=== PATIENT | female | born 1985 | race Caucasian/White ===

== ENCOUNTER → 2018-07-26 | Outpatient (CLI) | payer OTHER | LOC: FIMAGING 08:05 | PROVIDERS: ATTEND Obstetrics & Gynecology | DX: Z34.02 Encounter for supervision of normal first pregnancy, second trimester (principal); Z3A.20 20 weeks gestation of pregnancy ==

== ENCOUNTER → 2018-08-23 | Outpatient (CLI) | payer OTHER | LOC: FIMAGING 12:42 | PROVIDERS: ATTEND Obstetrics & Gynecology | DX: Z34.82 Encounter for supervision of other normal pregnancy, second trimester (principal); Z3A.24 24 weeks gestation of pregnancy ==

== ENCOUNTER 2018-12-09 21:04 | Inpatient (IN) | payer OTHER ==
[2018-12-09] MEDS ORDERED: fentaNYL 2MCG/ML/BUP 0.1% RTU 100 ML BAG EP ONE (22:10)
[2018-12-09] MEDS ORDERED: PHENYLEPHRINE HCL 100 MCG/ML SYR ONE (22:11)
[2018-12-09] MEDS ORDERED: MISOPROSTOL 200 MCG TAB PR PRN (22:23)
[2018-12-09] MEDS ORDERED: OXYTOCIN/RINGERS LACTATE 1,000 ML IV PRN (22:23)
[2018-12-09] MEDS ORDERED: LR 1,000 ML IV PRN (22:23)
[2018-12-09] MEDS ORDERED: EPSOM SALT 454 GM TP PRN (22:23)
[2018-12-09] MEDS ORDERED: IBUPROFEN 600 MG TAB PO PRN (22:23)
[2018-12-09] MEDS ORDERED: OLIVE OIL 118 ML BTL MISC PRN (22:23)
[2018-12-09] MEDS ORDERED: LIDOCAINE 1% 300 MG/30 ML SDV SC PRN (22:23)
[2018-12-09] MEDS ORDERED: LIDOCAINE 1% 300 MG/30 ML SDV ONE (22:39)
[2018-12-09] MEDS ORDERED: OLIVE OIL 118 ML BTL MISC ONE (22:39)
[2018-12-09 22:40] LABS: PLATELET COUNT 221 10^3/uL (150-400)
[2018-12-09] MEDS ORDERED: OXYTOCIN 10 UNIT/ML VIAL ONE (22:40)
[2018-12-09] MEDS ORDERED: AMMONIA AROMATIC 1 EACH AMP IH ONE (22:40)
[2018-12-09] MEDS ORDERED: MISOPROSTOL 200 MCG TAB ONE (22:40)
[2018-12-09] MEDS ORDERED: TERBUTALINE SULFATE 1 MG/ML VIAL ONE (22:40)
[2018-12-09] MEDS ORDERED: PHENYLEPHRINE HCL 100 MCG/ML SYR IVP PRN (23:03)
--- NOTE | 2018-12-09 23:03 | PREANESOB ---
Obstetric Pre-Anesthesia Info - General Info : 2 Para: 0 RAFFAELE: 12/12/18 Gestational Age: 39 week(s) and 4 day(s) - Info Status: Full Term, Fraga Monitors: External FHR Pattern: Reassuring - Labor Status Cervical Dilation per last OB SVE: 5 Amniotic Fluid Color: Clear PIH: No Magnesium Sulfate in Use: No Indications for Labor Analgesia: Pain Control Labor Epidural: Proposed Anesthesia Allergies/Adverse Reactions: Allergy/AdvReac Type Severity Reaction Status Date / Time No Known Allergies Allergy Unverified 02/15/15 13:10 Home Medications: Medication Instructions Recorded Docusate Sodium [Colace 100 MG (*)] 100 mg PO BID PRN #0 cap 02/18/15 Ibuprofen [Motrin (*)] 600 mg PO Q6 PRN #0 tab 02/18/15 Visit Medications: Generic Name Dose Route Start Last Admin Trade Name Freq PRN Reason Stop Dose Admin Lactated Ringer's 1,000 mls @ 0 mls/hr 12/09/18 22:23 Lr IV 12/10/18 22:22 PRN PRN SEE PROTOCOL CONDITIONS Protocol Per Protocol Oxytocin/Lactated Ringer's 1,000 mls @ 125 mls/hr 12/09/18 22:23 Pitocin 20 Units/Lr (Premix) IV PRN PRN Post bleeding Ibuprofen 600 mg 12/09/18 22:23 Motrin PO ONCE PRN post , pain Lidocaine HCl 300 mg 12/09/18 22:23 Lidocaine Hcl 1% SC 06/07/19 22:22 ONCE PRN episiotomy Magnesium Sulfate 454 gm 12/09/18 22:23 Epsom Salt TP 06/07/19 22:22 Q1H PRN perineal discomfort Misoprostol 800 - 1,000 mcg 12/09/18 22:23 Cytotec [place] ONCE PRN Vaginal Atony/Bleeding Cambria Oil 118 ml 12/09/18 22:23 Sweet Oil MISC 06/07/19 22:22 ONCE PRN perineal massage Discontinued Medications Generic Name Dose Route Start Last Admin Trade Name Freq PRN Reason Stop Dose Admin Ammonia (Aromatic Spirit) Confirm 12/09/18 22:40 Ammonia Aromatic Administered 12/09/18 22:41 Dose 1 each IH .STK-MED ONE Fentanyl/Bupivacaine HCl Confirm 12/09/18 22:10 Fentanyl/Bupivacaine/Ns 2 Mcg/Ml 0.1% (Premix Administered 12/09/18 22:11 Dose 100 ml EP .STK-MED ONE Lidocaine HCl Confirm 12/09/18 22:39 Lidocaine Hcl 1% Administered 12/09/18 22:40 Dose 300 mg .ROUTE .STK-MED ONE Misoprostol Confirm 12/09/18 22:40 Cytotec Administered 12/09/18 22:41 Dose 1,000 mcg .ROUTE .STK-MED ONE Cambria Oil Confirm 12/09/18 22:39 Sweet Oil Administered 12/09/18 22:40 Dose 118 ml MISC .STK-MED ONE Oxytocin Confirm 12/09/18 22:40 Pitocin Administered 12/09/18 22:41 Dose 40 unit .ROUTE .STK-MED ONE Phenylephrine HCl Confirm 12/09/18 22:11 Neosynephrine Administered 12/09/18 22:12 Dose 1,000 mcg .ROUTE .STK-MED ONE Terbutaline Sulfate Confirm 12/09/18 22:40 Brethine Administered 12/09/18 22:41 Dose 1 mg .ROUTE .STK-MED ONE - Vital Signs Height/Weight (Nursing): Height 175.26 cm Weight 78.471 kg - Focused Exam Neck exam: FROM Mallampati Score: Class 2 Mouth exam: normal dental/mouth exam Pulmonary: no respiratory distress, no rales or rhonchi, clear to auscultation Cardiovascular: regular rate and rhythym, no murmur, rub, or gallop Labs: 12/09/18 22:25 - Plan Consent Signed and on Chart: Yes Patient/Guardian Understands and Agrees to Plan: Yes
[2018-12-09] MEDS ORDERED: LR 500 ML IV SCH (23:30)
[2018-12-09] MEDS ORDERED: fentaNYL 2MCG/ML/BUP 0.1% RTU 100 ML EP SCH (23:30)
--- NOTE | 2018-12-10 00:03 | OBDEL ---
Info Type: Vaginal Presentation at Delivery: Vertex L&D Analgesia/Anesthesia Type: Epidural GBS+: No Intrapartum Medications: Discontinued Medications Generic Name Dose Route Start Last Admin Trade Name Callie PRN Reason Stop Dose Admin Oxytocin/Lactated Ringer's 1,000 mls @ 125 mls/hr 12/09/18 22:23 12/09/18 23: 32 Pitocin 20 Units/Lr (Premix) IV 1,000 mls PRN PRN Administration Post bleeding Indications for Delivery: Spontaneous Labor Vaginal Delivery - Delivery Provider Delivery Physician/CNM: Miranda Castro - Labor and Delivery Onset of Contractions Date: 12/09/18 Onset of Contractions Time: 21:30 Onset of Contractions Type: Spontaneous Rupture of Membranes Date: 12/09/18 Rupture of Membranes Time: 22:38 Rupture of Membranes Type: Spontaneous Amniotic Fluid Color: Clear Dilation Complete Date: 12/09/18 Dilation Complete Time: 23:05 Placenta Delivery Date: 12/09/18 Placenta Delivery Time: 23:35 Total Hours of Labor: 2 Laceration: 1st Degree (midline lac) Repair: Other (Specify) (none needed) Vaginal Sponge Count Correct: Yes Vaginal Needle Count Correct: Yes Vaginal Sweep Performed: Yes EBL: 300 Delivery Events: None (long umb cord, wrapped around foot) - Medications Labor Augmentation/Induction Methods Used: None Data RAFFAELE: 12/12/18 Gestational Age: 39 week(s) and 4 day(s) Fraga Delivery Date: 12/09/18 Delivery Time: 23:25 Sex of Infant: Female Score (1 Min): 8 Score (5 Min): 9 ICD10 Worksheet Patient Problems: Problems Problem Status Onset (spontaneous vaginal delivery) Acute
--- NOTE | 2018-12-10 01:34 | GHP ---
[f rep st] PREOP HISTORY AND PHYSICAL DATE OF ADMISSION: 12/09/2018 HISTORY UPON ADMISSION: The patient is a 33-year-old G2, P1 at 39+ weeks' gestation with an estimate d due date of 12/12/2018 who presents with spontaneous onset and gradual increase of contractions thr oughout the afternoon. The patient has reported they were getting more noticeable and regular after 7 pm; however, intensity did not really change until the patient was at the hospital. Bag of water i ntact, but the patient felt she did have her mucus plug release in the afternoon. The patient was fe eling good movement. The patient had an office visit on Wednesday and was told she was 4 cm dilat ed, approximately 70% effaced. Upon initial exam at the hospital, the patient did not appear to have much cervical change and was still 4 cm dilated, 70% effaced, at minus 2 station. CARE: The patient has been followed with [facility] recently after transfer of c are from [facility] in October 2018. The patient essentially was uncomplicated through the . She had an ultrasound at approximately 20 weeks that showed an intracardiac echogenic focus. Otherwise, the anatomy was normal. The patient did have a normal NIPT. On auscultation in the office, the patient also was noted to have a questionable arrhythmia, and the patient had a follow-up ultrasound that did not reveal any concerns. The rest of office care was uncomplicated. LABS: Maternal blood type O positive with negative antibody screen. RPR nonreactive. Rube lla immune. Hepatitis B surface antigen negative. HIV negative. Pap smear and HPV testing were bot h negative in 2016. Per the reports from [facility], a Pap smear and HPV were repeated i n May 2018. However, no results in records. Gonorrhea and chlamydia were negative. 1-hour Gl ucola was normal. GBS culture was negative. PAST MEDICAL HISTORY: Mild exercise-induced asthma. PAST SURGICAL HISTORY: Negative. PAST OBSTETRIC HISTORY: in 2016 of a viable male. Patient had spontaneous rupture of membranes without onset of labor and then received Pitocin. CURRENT MEDICATIONS: Only vitamins. ALLERGIES: No known drug allergies. IMMUNIZATIONS: The patient did receive a Tdap in September 2018 and the flu vaccine in June 2018. PHYSICAL EXAMINATION: VITAL SIGNS: The patient is afebrile. Blood pressure is initially slightly e levated in the 130s/80s; however, these improved to the 120s/70s. GENERAL: Upon admission to the [facility], the patient is a well-developed, well-nourished white female, in moderate discomfort after th e patient's contractions really started ramping up after 2129. PELVIC: The patient's exam is repeat ed, and she is 5-6 cm, 100% effaced at 0 station. At this time, the patient requests an epidural. W everton sitting up for the epidural, the patient has spontaneous rupture of membranes of clear fluid at 2238. heart tones show a baseline in the 130s with moderate variability. There are accelerati ons present but also minor variable decelerations. Category 2 tracing. Contractions every 2-3 minut es. EXTREMITIES: Nontender. No edema. ASSESSMENT: Intrauterine at 39+ weeks' gestation, spontaneous labor with active change and recent spontaneous rupture of membranes. The patient is sitting up to get an epidural placed. GBS culture negative. I was called and notified of the cervical change and headed into the hospital. The patient was makin g rapid progress with pelvic pressure and began pushing shortly after my arrival. Vaginal delivery w as prepped for. /[id number]/MODL
[2018-12-10] MEDS: ACETAMINOPHEN 325 MG TAB PO PRN ×3 (05:32→17:52)
[2018-12-10] MEDS: IBUPROFEN 600 MG TAB PO PRN ×3 (05:32→17:52)
--- NOTE | 2018-12-10 12:29 | OBPP ---
Progress Note Assessment/Plan: Assessment: PPD1 s/p . Routine cares, doing great. Likely home tomorrow. support PRN, not needing narcotics. No repeat Hct. Rh pos, Rubella immune. Laboratory Tests 05/20/18 11/18/18 12/09/18 10:20 09:00 22:25 Hct 38.0 Rubella IgG Antibody 26.50 Group B Strep DNA NEGATIVE Patient ABO/Rh 12/09/18 22:25 Hct Rubella IgG Antibody Group B Strep DNA Patient ABO/Rh O POSITIVE Subjective/ Course: Fadumo is doing great this AM - pain controlled, BF going well. Thinks she'll be ready to go home tomorrow. Objective: 12/09/18 22:25 Patient ABO/Rh O POSITIVE 12/09/18 22:25 Temp Pulse Resp BP Pulse Ox 36.5 C 79 16 103/70 96 12/10/18 08:47 12/10/18 08:47 12/10/18 08:47 12/10/18 08:47 12/10/18 08:47 Uterine Position/Fundal Height: Umbilicus -2 Uterine Tone: Firm
--- NOTE | 2018-12-10 19:31 | POSTANESTH ---
Post Anesthetic Evaluation Cardiovascular Status: Normal, Stable Respiratory Status: Normal, Stable Level of Consciousness/Mental Status: Can Participate in Eval Pain Control: Adequate, Prn Tx Ordered Nausea/Vomiting Control: Adequate, Prn Tx Ordered Complications Possibly Related to Anesthesia: None Noted (Pt doing well s/p REBECCA for delivery. No headache, no residual block. Pt was satisfied with effectiveness of epidural for labor pain control.)
[2018-12-11] MEDS: ACETAMINOPHEN 325 MG TAB PO PRN ×2 (00:10→05:54)
[2018-12-11] MEDS: IBUPROFEN 600 MG TAB PO PRN ×2 (00:10→05:54)
[2018-12-11 09:09] VITALS: BP 107/67
--- NOTE | 2018-12-11 10:53 | OBPP ---
Progress Note Assessment/Plan: Assessment: PPD 1 1/2 s/p Plan: D/C home, routine care 12/11/18 10:51 Subjective/ Course: Fadumo is doing great this AM - pain controlled, BF going well. Thinks she'll be ready to go home tomorrow. 12/11/18 10:51 Pt doing well. working on BF and baby doing well. urinating fine. bld is less than yesterday. small clots occas. ready for d/c Objective: 12/09/18 22:25 Patient ABO/Rh O POSITIVE 12/09/18 22:25 Temp Pulse Resp BP Pulse Ox 36.7 C 75 16 107/67 97 12/11/18 09:08 12/11/18 09:08 12/11/18 09:08 12/11/18 09:08 12/11/18 09:08 Uterine Position/Fundal Height: Umbilicus -2 Uterine Tone: Firm Physical Exam - Physical Exam Abdomen: non-tender, soft, other (FF at umb -2) Extremities: non-tender, pedal edema (none) Skin: normal color, warm/dry Neuro/Psych: alert, normal mood/affect
--- NOTE | 2018-12-11 10:54 | OBGCSDC ---
General Delivery Information - General Info : 2 Para: 2 Abortions: 0 Type: Vaginal L&D Analgesia/Anesthesia Type: Epidural Admission Date: 12/09/18 Labs: Patient ABO/Rh O POSITIVE 12/09/18 22:25 Hct 38.0 % (38.0-47.0) 12/09/18 22:25 - Hospital Course : Fadumo is doing great this AM - pain controlled, BF going well. Thinks she'll be ready to go home tomorrow. 12/11/18 10:51 Pt doing well. working on BF and baby doing well. urinating fine. bld is less than yesterday. small clots occas. ready for d/c Vaginal - Delivery Provider Delivery Physician/CNM: Miranda Castro - Diagnosis Labor: Spontaneous Rupture of Membranes Type: Spontaneous Amniotic Fluid Color: Clear Laceration: 1st Degree (midline lac) Repair: Other (Specify) (none needed) Delivery Events: None (long umb cord, wrapped around foot) - Delivery EBL: 300 Data RAFFAELE: 12/12/18 Gestational Age: 39 week(s) and 6 day(s) Fraga Delivery Date: 12/09/18 Delivery Time: 23:25 Sex of Infant: Female [place] Weight (gm): 3220 g Score (1 Min): 8 Score (5 Min): 9 Discharge Information - Discharge Information Condition: Good Instruction/Follow Up: See Instruction Sheet, Two Weeks (2-3 wks with therapist) , Six Weeks (with LJ)
== END 2018-12-11 12:00 | disposition home or self-care (01) | DRG 807 ==
LOC: FLD 21:04 → OBSVTOIN 22:24 → FOB 12-10 01:46
PROVIDERS: ADMIT Obstetrics & Gynecology; ATTEND Obstetrics & Gynecology
PROC: 10E0XZZ Delivery of Products of Conception, External Approach (ICD-10-PCS; principal; 2018-12-09)
PROC: 0HQ9XZZ Repair Perineum Skin, External Approach (ICD-10-PCS; principal; 2018-12-09)
DX: O69.82X0 Labor and delivery complicated by other cord entanglement, without compression, not applicable or unspecified (principal); O70.0 First degree perineal laceration during delivery; Z3A.39 39 weeks gestation of pregnancy; Z37.0 Single live birth
CPT/HCPCS: J2370; J2590; J3105